=== PATIENT | female | born 1945 | race Hispanic/Latino ===

== ENCOUNTER 2016-12-13 15:04 | Outpatient (CLI) | payer OTHER | END 2016-12-13 15:43 | disposition short-term general hospital (02) | LOC: AMB 15:04 | DX: M21.862 Other specified acquired deformities of left lower leg (principal); W10.8XXA Fall (on) (from) other stairs and steps, initial encounter; Y92.098 Other place in other non-institutional residence as the place of occurrence of the external cause | CPT/HCPCS: A0425; A0427 ==